=== PATIENT | female | born 2005 | race Caucasian/White ===

== ENCOUNTER → 2024-06-24 | Outpatient (CLI) | payer BC ==
--- NOTE | 2024-06-28 07:26 | USB ---
Reason for Exam: Clinical finding. Technique: Method: Targeted. Findings: The area of palpable concern of the right breast, the axilla of the right breast and the retroareolar of the right breast were scanned. Targeted ultrasound inferior aspect of the right breast 5:00 to 7:00. Patient's previous palpable site 6:00 position, 2 cm from the nipple. Dense tissue is present throughout without solid or cystic lesion. The patient reports that the previous palpable area has resolved. Overall Assessment: Negative, BI-RAD 1 Management: Screening Mammogram of both breasts at age 39. Unless there is an indication to start sooner. Patient should continue monthly self breast exams. If there is any recurrent palpable abnormality, the patient can be rescanned. Results were given to the patient verbally at the time of exam. Electronically signed and approved by: Cliff Allen M.D. Radiologist
== END | disposition home or self-care (01) ==
LOC: RADUSWWP 12:57
PROVIDERS: ATTEND Obstetrics & Gynecology
DX: N63.10 Unspecified lump in the right breast, unspecified quadrant (principal)